=== PATIENT | female | born 1965 ===

== ENCOUNTER 2018-03-23 15:02 | Emergency (ER) | payer BC ==
[2018-03-23 15:12] VITALS: BP 157/93; PULSE 83; RESP 18; TEMP 98.3; O2SAT 97
[2018-03-23] MEDS ORDERED: Tmp-Smz 800 mg-160 mg DS Tab PO STA (15:17)
[2018-03-23] MEDS ORDERED: Lidocaine 1% PF (5ml) Amp INJ ONE (15:17)
--- NOTE | 2018-03-23 15:20 | ED PDOC ---
HPI: General Adult Time Seen by Provider: 03/23/18 15:11 Chief Complaint (Nursing): Abnormal Skin Integrity Chief Complaint (Provider): Abnormal Skin Integrity History Per: Patient, [employer] Drawer ([id number]) History/Exam Limitations: no limitations Onset/Duration Of Symptoms: Days (few months, worse since x4 days ago) Current Symptoms Are (Timing): Still Present Additional Complaint(s): 52 year old female presents to the ED for evaluation of a "little ball" to her left lower abdomen that has been there for months, but became red, swollen, and painful four days ago. Patient reports she thinks she has been having fevers, but has not taken any medications. PMD: [facility] Past Medical History Reviewed: Historical Data, Nursing Documentation, Vital Signs Vital Signs: Last Vital Signs Temp 98.3 F 03/23/18 15:11 Pulse 83 03/23/18 15:11 Resp 18 03/23/18 15:11 BP 157/93 H 03/23/18 15:11 Pulse Ox 97 03/23/18 15:51 - Medical History PMH: Diabetes, HTN, Hypothyroidism - Surgical History Surgical History: No Surg Hx - Family History Family History: States: Unknown Family Hx - Home Medications Home Medications: Ambulatory Orders Medication Instructions Recorded Ciprofloxacin/Ciprofloxa HCl 500 mg PO BID #20 ter 04/12/15 [Ciprofloxacin] Cephalexin [cephalexin] 500 mg PO BID #14 cap 03/23/18 Ibuprofen [Motrin] 600 mg PO Q6 #20 tab 03/23/18 Sulfamethoxazole/Trimethoprim 1 tab PO BID 5 Days tab 03/23/18 [Bactrim DS 800 mg-160 mg] - Allergies Allergies/Adverse Reactions: Allergies Allergy/AdvReac Type Severity Reaction Status Date / Time No Known Allergies Allergy Verified 03/23/18 15:11 Review of Systems ROS Statement: Except As Marked, All Systems Reviewed And Found Negative Constitutional: Positive for: Fever (subjective) Gastrointestinal: Positive for: Other ("little ball" to left lower abdomen, red , swollen, painful) Physical Exam - Reviewed Nursing Documentation Reviewed: Yes Vital Signs Reviewed: Yes - Physical Exam Appears: Positive for: No Acute Distress Head Exam: Positive for: ATRAUMATIC, NORMOCEPHALIC Skin: Positive for: Normal Color, Warm, Dry Eye Exam: Positive for: Normal appearance Cardiovascular/Chest: Positive for: Regular Rate, Rhythm Respiratory: Positive for: Normal Breath Sounds. Negative for: Accessory Muscle Use, Respiratory Distress Gastrointestinal/Abdominal: Positive for: Tenderness (tender fluctuant erythematous mass approx. 4 cm to LLQ) Back: Positive for: Normal Inspection Extremity: Positive for: Normal ROM Neurologic/Psych: Positive for: Alert, Oriented (x3). Negative for: Motor/ Sensory Deficits - ECG O2 Sat by Pulse Oximetry: 97 (RA) Pulse Ox Interpretation: Normal Medical Decision Making Medical Decision Making: Time: 15:18 Initial Impression: abscess Initial Plan: --Keflex 500 mg PO --Lidocaine 1% 20 mg SC --Bactrim 1 tab PO 15:37 Abscess drained in room by SUKHDEEP Rodas. Patient tolerated the procedure well , without complications. All questions were answered at this time. Patient was educated on further wound care, and advised to follow up with PMD within 1-2 days for package removal, or to the ED with new or worsening symptoms. See procedure note for more information on I&D. Scribe Attestation: Documented by Sindhu Justice, acting as a scribe for Sheba Rodas PA-C. Provider Scribe Attestation: All medical record entries made by the Scribe were at my direction and personally dictated by me. I have reviewed the chart and agree that the record accurately reflects my personal performance of the history, physical exam, medical decision making, and the department course for this patient. I have also personally directed, reviewed, and agree with the discharge instructions and disposition. Procedures - Time-Out Type of Procedure: I&D Site of Procedure: LLQ Correct Patient (with visual ID + MR# on ID Band): Yes Correct Procedure: Yes Correct Site Marked: Yes Medication Reconciliation / Bloodwork / Allergies Checked: Yes PA/Tech: Sheba Petronella, PA-C - Incision and Drainage Site: LLQ Blade Size: 11 I & D Procedure: betadine prep, sterile drapes applied, sterile dressing applied , gauze wick placed Disposition - Clinical Impression Clinical Impression: Abscess - Patient ED Disposition Is Patient to be Admitted: No - Disposition Disposition: Routine/Home Disposition Time: 16:01 Condition: STABLE Prescriptions: Cephalexin [cephalexin] 500 mg PO BID #14 cap Ibuprofen [Motrin] 600 mg PO Q6 #20 tab Sulfamethoxazole/Trimethoprim [Bactrim DS 800 mg-160 mg] 1 tab PO BID 5 Days tab Instructions: Abscess Incision and Drainage Forms: [facility] (Vietnamese) Print Language: SAMMARINESE
[2018-03-23] MEDS ORDERED: Lidocaine Hydrochloride 5 ML INJ ONE (15:21)
[2018-03-23] MEDS ORDERED: Tmp-Smz 800 mg-160 mg DS Tab ONE (16:03)
== END 2018-03-23 16:15 | disposition home or self-care (01) ==
LOC: H.ER 15:02
DX: L02.211 Cutaneous abscess of abdominal wall (principal); E03.9 Hypothyroidism, unspecified; E11.9 Type 2 diabetes mellitus without complications; I10 Essential (primary) hypertension

== ENCOUNTER 2018-03-25 13:16 | Emergency (ER) | payer BC ==
[2018-03-25 13:22] VITALS: BP 149/83; PULSE 69; RESP 18; TEMP 98.4; O2SAT 97
--- NOTE | 2018-03-25 13:50 | ED PDOC ---
HPI: Wound Care - HPI Time Seen by Provider: 03/25/18 13:24 Chief Complaint (Nursing): Wound Check Chief Complaint (Provider): Wound Check History Per: Patient, Family (daughter), Sales Center Manager (Jihan Marsh, RN at bedside for Sinhala Translation) Location Of Injury: Left: Abdomen Additional Complaint(s): 52 year old female presents to the ED for wound check of abscess to left abdominal wall. Patient reports area is mild itchy but pain has improved. No fever or chills. Patient is currently taking Keflex and Bactrim as prescribed. PMD: Dr. Craven, Humberto Alfred Past Medical History Reviewed: Historical Data, Nursing Documentation, Vital Signs Vital Signs: Last Vital Signs Temp 98.4 F 03/25/18 13:17 Pulse 69 03/25/18 13:17 Resp 18 03/25/18 13:17 BP 149/83 03/25/18 13:17 Pulse Ox 97 03/25/18 13:17 - Medical History PMH: Diabetes, HTN, Hypothyroidism - Family History Family History: States: No Known Family Hx - Living Arrangements Living Arrangements: With Family - Social History Current smoker - smoking cessation education provided: No Alcohol: None Drugs: Denies - Home Medications Home Medications: Ambulatory Orders Medication Instructions Recorded Ciprofloxacin/Ciprofloxa HCl 500 mg PO BID #20 ter 04/12/15 [Ciprofloxacin] Cephalexin [cephalexin] 500 mg PO BID #14 cap 03/23/18 Ibuprofen [Motrin] 600 mg PO Q6 #20 tab 03/23/18 Sulfamethoxazole/Trimethoprim 1 tab PO BID 5 Days tab 03/23/18 [Bactrim DS 800 mg-160 mg] - Allergies Allergies/Adverse Reactions: Allergies Allergy/AdvReac Type Severity Reaction Status Date / Time No Known Allergies Allergy Verified 03/23/18 15:11 Review of Systems ROS Statement: Except As Marked, All Systems Reviewed And Found Negative Constitutional: Negative for: Fever, Chills Skin: Positive for: Other (wound check of abscess to abdominal wall) Physical Exam - Reviewed Nursing Documentation Reviewed: Yes Vital Signs Reviewed: Yes - Physical Exam Appears: Positive for: Well, Non-toxic, No Acute Distress Head Exam: Positive for: ATRAUMATIC, NORMOCEPHALIC Skin: Positive for: Normal Color. Negative for: Rash Eye Exam: Positive for: Normal appearance Gastrointestinal/Abdominal: Positive for: Other (Healing abscess to left abdominal wall. No active drainage and minimal induration, no erythema noted) Extremity: Positive for: Normal ROM Neurologic/Psych: Positive for: Alert, Oriented. Negative for: Motor/Sensory Deficits - ECG O2 Sat by Pulse Oximetry: 97 (RA) Pulse Ox Interpretation: Normal - Progress ED Course And Treament: Packing removed without difficulty. Abscess is healing. Medical Decision Making Medical Decision Making: Initial Impression: 52 y/o here for abscess wound check Packing was removed from wound without any difficulty. Abscess appears to be healing well. Patient advised to continue with current antibiotics and follow- up as needed with primary doctor. Scribe Attestation: Documented by Satish Siddiqui acting as a scribe for Sheba SIERRA. Provider Scribe Attestation: All medical record entries made by the Scribe were at my direction and personally dictated by me. I have reviewed the chart and agree that the record accurately reflects my personal performance of the history, physical exam, medical decision making, and the department course for this patient. I have also personally directed, reviewed, and agree with the discharge instructions and disposition. Disposition - Clinical Impression Clinical Impression: Encounter for wound re-check, Abscess - Patient ED Disposition Is Patient to be Admitted: No Counseled Patient/Family Regarding: Need For Followup - Disposition Referrals: Elodia Castle [Medical Doctor] - Disposition: Routine/Home Disposition Time: 14:15 Condition: STABLE Additional Instructions: Continue with current antibiotics until completed. Apply warm compresses with Epsom salts to affected area as often as possible. Follow-up as needed with primary doctor. Instructions: Skin Abscess Forms: [employer] (Sinhala) Print Language: PASHTO
== END 2018-03-25 14:35 | disposition home or self-care (01) ==
LOC: H.ER 13:16
DX: Z48.01 Encounter for change or removal of surgical wound dressing (principal); L02.211 Cutaneous abscess of abdominal wall

== ENCOUNTER 2018-11-20 07:25 | Day surgery (SDC) | payer BC ==
[2018-11-20] MEDS ORDERED: Lactated Ringer's 500 ML IV ONE (07:49)
[2018-11-20 07:57] VITALS: BMI 29.9
[2018-11-20] MEDS ORDERED: Propofol 10 mg/ml Inj (20 ML) ONE (09:08)
[2018-11-20] MEDS ORDERED: Midazolam 2 MG/2 ML VIAL ONE (09:08)
[2018-11-20 09:31] VITALS: BP 102/60
[2018-11-20 09:47] VITALS: PULSE 68; RESP 14; TEMP 96.8; O2SAT 100
== END 2018-11-20 12:03 | disposition home or self-care (01) ==
LOC: H.ENDO 07:25
PROVIDERS: ATTEND Internal Medicine Gastroenterology
DX: K64.8 Other hemorrhoids (principal); E03.9 Hypothyroidism, unspecified; E11.9 Type 2 diabetes mellitus without complications; R10.84 Generalized abdominal pain
CPT/HCPCS: 45378; J2001; J2250; J2704; J7120

== ENCOUNTER 2019-01-23 16:20 | Emergency (ER) | payer BC ==
[2019-01-23 16:20] VITALS: BMI 29.9
[2019-01-23 18:37] VITALS: RESP 16; O2SAT 99
--- NOTE | 2019-01-23 19:13 | ED PDOC ---
HPI: Eye Injury/Pain Time Seen by Provider: 01/23/19 19:00 Chief Complaint (Nursing): Eye Problem Chief Complaint (Provider): Eye Problem History Per: Patient History/Exam Limitations: no limitations Onset/Duration Of Symptoms: Days (x4) Current Symptoms Are (Timing): Still Present Additional Complaint(s): 53 year old female with medical history of diabetes, HTN, and hypothyroidism, presents to the emergency department with a complaint of bilateral eye pain associated with yellow drainage since 01/20/19. Additionally, she reports experiencing a sore throat with low-grade fever and slight photophobia. 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 Otherwise, she denies visual changes or further medical complaints. Past Medical History Reviewed: Historical Data, Nursing Documentation, Vital Signs Vital Signs: Last Vital Signs Temp 98 F 01/23/19 18:36 Pulse 74 01/23/19 18:36 Resp 16 01/23/19 18:36 BP 165/95 H 01/23/19 18:36 Pulse Ox 99 01/23/19 18:36 Primary Care Provider: Humberto Craven - Medical History PMH: Diabetes, HTN, Hypothyroidism Denies: Chronic Kidney Disease - Family History Family History: States: Unknown Family Hx - Home Medications Home Medications: Ambulatory Orders Medication Instructions Recorded Levothyroxine [Synthroid] 75 mcg PO DAILY 11/20/18 MetFORMIN [glucOPHAGE] 1,000 mg PO BID 11/20/18 Polymyxin B Sulf/Trimethoprim 2 drop OU Q6H 7 Days #1 bottle 01/23/19 [Polymyxin B-Tmp Eye Drops] - Allergies Allergies/Adverse Reactions: Allergies Allergy/AdvReac Type Severity Reaction Status Date / Time No Known Allergies Allergy Verified 03/23/18 15:11 Review of Systems ROS Statement: Except As Marked, All Systems Reviewed And Found Negative Constitutional: Positive for: Fever (low grade) Eyes: Positive for: Pain (bilaterally with yellow drainage), Other (photophobia). Negative for: Vision Change ENT: Positive for: Throat Pain Physical Exam - Reviewed Nursing Documentation Reviewed: Yes Vital Signs Reviewed: Yes - Physical Exam Eye Exam: Positive for: EOMI, PERRL, Conjunctival injection (bilaterally with yellow crusting on lower right lid), Scleral icterus (bilaterally). Negative for: Periorbital swelling, Periorbital tenderness ENT: Positive for: Normal ENT Inspection. Negative for: Pharyngeal Erythema, Tonsillar Exudate, Tonsillar Swelling Neck: Positive for: Normal Cardiovascular/Chest: Positive for: Regular Rate, Rhythm Respiratory: Positive for: Normal Breath Sounds. Negative for: Respiratory Distress - ECG O2 Sat by Pulse Oximetry: 99 (RA) Pulse Ox Interpretation: Normal Medical Decision Making Medical Decision Making: Time: 1904 --Upon provider reevaluation, patient is noted with elevated B/P. She admits to missing her medication intake this morning, however, reports asymptomatic. Patient will be discharged home with Rx for Polymyxins B eye drops and advised to take her B/P medication when she gets home and to follow up with her PCP. Counseling was provided and all questions were answered regarding diagnosis. There is agreement to discharge plan. Return to ED or follow up with PCP if symptoms persist or worsen. Clinical Impression: bacterial conjunctivitis Scribe Attestation: Documented by Janine Bautista, acting as a scribe for Angelica Goldberg APN. Provider Scribe Attestation: All medical record entries made by the Scribe were at my direction and personally dictated by me. I have reviewed the chart and agree that the record accurately reflects my personal performance of the history, physical exam, medical decision making, and the department course for this patient. I have also personally directed, reviewed, and agree with the discharge instructions and disposition. Disposition - Clinical Impression Clinical Impression: Bacterial conjunctivitis of both eyes - Patient ED Disposition Is Patient to be Admitted: No Counseled Patient/Family Regarding: Diagnosis, Need For Followup, Rx Given - Disposition Disposition: Routine/Home Disposition Time: 19:05 Condition: STABLE Prescriptions: Polymyxin B Sulf/Trimethoprim [Polymyxin B-Tmp Eye Drops] 2 drop OU Q6H 7 Days #1 bottle Instructions: Conjunctivitis ([place]) (DC) Forms: [facility] (P[place]an), [facility] ED School/Work Excuse - POA Present On Arrival: None
[2019-01-23 19:22] VITALS: BP 141/87; PULSE 70; TEMP 98.2
== END 2019-01-23 19:19 | disposition home or self-care (01) ==
LOC: H.ER 16:20
DX: H10.33 Unspecified acute conjunctivitis, bilateral (principal)